=== PATIENT | female | born 1960 | race Caucasian/White ===

== ENCOUNTER 2020-08-10 08:25 | Outpatient (CLI) | payer BC, SELFPAY | END 2020-08-10 08:26 | disposition home or self-care (01) | PROVIDERS: PCP Family Medicine; Visit Provider Family Medicine | DX: R06.02 Shortness of breath (principal) | CPT/HCPCS: 94060; 94726; 94729 ==

== ENCOUNTER 2020-12-22 09:59 | Outpatient (CLI) | payer BC, SELFPAY ==
--- NOTE | ~2020-12-22 | XR_ITS ---
XR hand LT min 3V DATE: 12/22/2020 10:14 INDICATION: Chronic polyarthritis. Bilateral hand pain. TECHNIQUE: 3 views COMPARISON: None FINDINGS: There is a benign 4 mm cyst of the navicular bone. Osteoarthritic changes are noted primarily at the interphalangeal joints. No fracture, dislocation, periosteal reaction or bone destruction. No erosive change or chondrocalcin osis is detected. IMPRESSION: Osteoarthritic change primarily of the interphalangeal joints Reviewed, dictated and finalized at location B.
--- NOTE | ~2020-12-22 | XR_ITS ---
XR hand RT min 3V DATE: 12/22/2020 10:14 INDICATION: Chronic polyarthritis. Bilateral hand pain. TECHNIQUE: 3 views COMPARISON: None FINDINGS: There is osteoarthritis involving primarily the interphalangeal joints and first metacarpop halangeal joint. There is minimal osteoarthritic change at the third metacarpophalangeal joint. Mild osteoarthritis at the first carpometacarpal joint. No fracture, dislocation, periosteal reaction or bone destruction. No erosive change or chondrocalcin osis. IMPRESSION: Polyarticular osteoarthritis Reviewed, dictated and finalized at location B.
== END 2020-12-22 10:00 | disposition home or self-care (01) ==
LOC: CHSIMG 10:00
PROVIDERS: PCP Family Medicine; Visit Provider Family Medicine
DX: M13.0 Polyarthritis, unspecified (principal)
CPT/HCPCS: 73130

== ENCOUNTER 2020-12-30 13:23 | Outpatient (CLI) | payer BC, SELFPAY | END 2020-12-30 13:24 | disposition home or self-care (01) | LOC: CHSLAB 13:26 | PROVIDERS: PCP Family Medicine; Visit Provider Specialist | DX: L85.9 Epidermal thickening, unspecified (principal) | CPT/HCPCS: 88305 ==

== ENCOUNTER → 2021-12-22 09:34 | Outpatient (CLI) | payer BC, SELFPAY ==
--- NOTE | ~2021-12-22 | CT_ITS ---
EXAMINATION: CT diagnostic chest wo con DATE: 12/22/2021 09:56 INDICATION: Right breast cancer, pulmonary nodule TECHNIQUE: Computed tomography (CT) of the chest was performed without intravenous contrast. The dose -length product (DLP) was 645.63 mGy-cm. Automated exposure control and iterative reconstruction tech nique were employed. COMPARISON: None FINDINGS: There is a 3 mm nodule of the right lower lobe on image 74. The lungs are free of acute opa cities. There is no pleural effusion or pneumothorax. No pathologically enlarged thoracic lymph nodes are identified. The heart size is normal. There are changes of bilateral mastectomy with apparent tr am flap reconstruction. A 4.0 x 1.0 cm fluid collection is seen in the left axilla, likely postoperat meena seroma. There are changes of right axillary lymph node dissection. There is moderate thoracic spo ndylosis. The gallbladder is surgically absent. IMPRESSION: 1. Indeterminate 3 mm nodule of the right lower lobe. Comparison with any available prior imaging is recommended. Reviewed, dictated and finalized at location B. IMPRESSION: 1. Indeterminate 3 mm nodule of the right lower lobe. Comparison with any avail able prior imaging is recommended.
== END ==
PROVIDERS: PCP Family Medicine; Visit Provider Internal Medicine Medical Oncology
DX: C50.411 Malignant neoplasm of upper-outer quadrant of right female breast (principal); Z17.0 Estrogen receptor positive status [ER+]
CPT/HCPCS: 71250

== ENCOUNTER 2024-07-27 15:49 | Outpatient (CLI) | payer MEDICARE, SELFPAY ==
--- NOTE | ~2024-07-27 | US_ITS ---
Soft tissue left knee ULTRASOUND (Doppler ultrasound interrogation techniques used as needed for this exam.) Ordering provider: Tawanda Albright, History: . Acute knee pain . Comparison: None. FINDINGS/impression: Compressible fluid collection anterior to the patella suggestive of hematoma or seroma. Fluid in the suprapatellar bursa is also possible. Reviewed, dictated and finalized at location A.
== END 2024-07-27 15:50 | disposition home or self-care (01) ==
LOC: ANHIMG 15:55
PROVIDERS: PCP Family Medicine; Visit Provider Family Medicine
DX: M25.562 Pain in left knee (principal)
CPT/HCPCS: 76882

== ENCOUNTER → 2024-11-09 11:15 | Outpatient (REF) | payer MEDICARE, SELFPAY ==
--- OUTSIDE RECORDS SUMMARY | 2024-11-09 12:07 | XMS_ITS | Referral Summary ---
Author Organization [facility] Address [address] [place] [id number] Care Team Providers Care Dietary Supervisor Name Role Phone Tawanda Albright MD Primary Care Provider [phone] Jemima Crouch COMPUTER SYSTEM VALIDATION SPECIALIST Unavailable + [phone] Encounters Date Type Department Care Team Description 10/08/2024 8:00 AM LEAD MANUFACTURING ENGINEERING TECH Therapy [facility] [place] [address] [place], PT Acute pain of left knee (Primary Dx); Chronic pain of left knee; Suprapatellar bursitis of left knee 10/01/2024 7:45 AM LEAD MANUFACTURING ENGINEERING TECH Therapy [facility] [place] [address] [place], PT Acute pain of left knee (Primary Dx); Chronic pain of left knee; Suprapatellar bursitis of left knee 09/25/2024 7:00 AM LEAD MANUFACTURING ENGINEERING TECH Therapy [facility] [place] [address] [place], PT Acute pain of left knee (Primary Dx); Chronic pain of left knee; Suprapatellar bursitis of left knee 09/16/2024 5:00 PM LEAD MANUFACTURING ENGINEERING TECH Therapy [facility] [place] [address] [place], PT Acute pain of left knee (Primary Dx); Chronic pain of left knee; Suprapatellar bursitis of left knee 09/10/2024 7:00 AM LEAD MANUFACTURING ENGINEERING TECH Therapy [facility] [place] [address] [place], PT Acute pain of left knee (Primary Dx); Chronic pain of left knee; Suprapatellar bursitis of left knee; Primary osteoarthritis of left knee 08/31/2024 Telephone [facility] Primary Care at [address] [phone] Tawanda Albright MD Medical Question/Miscellaneou s 08/31/2024 Plan of Care Documentation [facility] Physical [facility] [place] [address] 08/31/2024 Orders Only [facility] Primary Care at [address] [phone] Tawanda Albright MD Basal cell carcinoma (BCC) of skin of other part of torso (Primary Dx) 08/31/2024 7:45 AM LEAD MANUFACTURING ENGINEERING TECH Therapy [facility] [place] [address] [place], PT Acute pain of left knee; Chronic pain of left knee; Suprapatellar bursitis of left knee; Primary osteoarthritis of left knee 08/26/2024 Telephone [facility] Primary Care at [address] [phone] Tawanda Albright MD Referral Request 08/17/2024 Telephone [facility] Primary Care at [address] [phone] Tawanda Albright MD Medication Request 08/17/2024 Telephone [facility] [address] [phone] Elizabeth Ramirez MD Scheduling Appointments 08/17/2024 Telephone [facility] Primary Care at [address] [phone] Tawanda Albright MD Medical Question/Miscelllatesha s 08/14/2024 Telephone [facility] Primary Care at [address] [phone] Tawanda Albright MD Medical Question/Mariellacelllatesha s 08/12/2024 Orders Only [facility] Medical [facility] Primary Care at [address] [phone] Tyron Munoz, Acute pain of left knee (Primary Dx); Chronic pain of left knee; Suprapatellar bursitis of left knee; Primary osteoarthritis of left knee 08/12/2024 10:30 AM LEAD MANUFACTURING ENGINEERING TECH Office Visit [facility] Medical [facility] Primary Care at [address] [phone] Tyron Munoz DO Primary osteoarthritis of left knee (Primary Dx); Acute pain of left knee; Chronic pain of left knee; Suprapatellar bursitis of left knee; Patellofemoral syndrome of left knee; Sprain of medial collateral ligament of left knee, initial encounter 08/10/2024 Telephone [facility] [address] [place] [phone] Maria Del Carmen Morfin RN from Last 3 Months Allergies Active Allergy Reactions Criticality Noted Date Comments Iodinated Contrast Media Anaphylaxis,Hives,Swelling High 08/04/2019 Latex Rash Medium 06/16/2019 Medications omeprazole (PriLOSEC) 40 mg capsuleIndicati ons:acid reflux Take 20 mg by mouth every morning Active fluticasone propionate (FLONASE) 50 mcg/actuation nasal spray Administer 1 spray into each nostril as needed for rhinitis Active folic acid/multivit-m in/lutein (CENTRUM SILVER ORAL)Indication s:supplement Take 1 tablet by mouth daily with breakfast Active acetaminophen (TYLENOL) 500 mg tablet Take 2 tablets (1,000 mg total) by mouth every 6 (six) hours as needed for pain Active xgmdi-6-zhp-epa -dpa-fish oil 1,050-1,200 mg capsule 1 capsule Active coenzyme Q10 10 mg capsule Take 1 capsule (10 mg total) by mouth daily Active telmisartan (MICARDIS) 40 mg tabletIndicatio ns:hypertension Take 0.5 tablets (20 mg total) by mouth daily 45 tablet 3 4 01/28/20 25 Active vit D3-vit U-tyjnatfvv-tly s [phone] asxt-xhy-lw-mg tablet Take by mouth Active exemestane (AROMASIN) 25 mg tabletIndicatio ns:advanced breast cancer progress post-antiestrog en tx Take 1 tablet (25 mg total) by mouth daily 90 tablet 2 4 Active HYDROcodone-maggy taminophen (NORCO) 5-325 mg per tabletIndicatio ns:Pain Take 1 tablet by mouth every 6 (six) hours as needed for pain 15 tablet 4 Active Additional Information Patient not taking.Reported on 08/12/2024 atorvastatin (LIPITOR) 40 mg tablet TAKE 1/2 TABLET(20 MG) BY MOUTH DAILY 45 tablet 1 4 Active celecoxib (CeleBREX) 200 mg capsuleIndicati ons:Acute pain of left knee Take 1 capsule (200 mg total) by mouth daily for 14 days 14 capsule 4 Active fluticasone-ume clidin-vilanter (Trelegy Ellipta) 100-62.5-25 mcg inhaler Inhale 1 puff daily 60 each 3 4 Active Active Problems Problem Noted Date Diagnosed Date Skin tag 07/24/2024 Osteopenia of left hip 07/03/2024 supervisor intermediates (current) use of aromatase inhibitors 07/03/2024 Administrative encounter 05/13/2024 Assessment & Plan (05/13/2024 10:19 AM CDT): A(n) yearly Annual [employer] Visit has been performed today. Char Barragan is not up to date on screening tests. She is in need of hep B and Cholesterol screening. She is not up to date on needed preventative vaccinations. We discussed healthy lifestyle habits, educational material has been given. Medications reviewed, changes documented as per the medical record and discussed with patient along with risks vs benefits. Return in 6 months Hypertension 11/13/2023 Assessment & Plan (11/13/2023 11:14 AM LEAD MANUFACTURING ENGINEERING TECH): Blood Pressure Follow-up: Lifestyle modifications education provided on sodium reduction, increase physical activity, reduce alcohol consumption, and weight reduction. H/O bilateral mastectomy 06/19/2023 COPD (chronic obstructive pulmonary disease) GERD (gastroesophageal reflux disease) 3 Initial Medicare annual wellness visit Assessment & Plan (05/15/2023 10:04 AM CDT): A(n) initial Medicare Annual Wellness Visit has been performed today. Char Barragan is not up to date on screening tests. She is in need of DEXA, Colon cancer screening, and Cholesterol screening. She is not up to date on needed preventative vaccinations; She is in need of Tdap/Td and Zoster. We discussed healthy lifestyle habits, educational material has been given. Medications reviewed, changes documented as per the medical record and discussed with patient along with risks vs benefits. Return in 6 months Assessment & Plan (07/26/2022 8:27 PM CDT): A(n) initial well visit to establish care has been performed today. Char Barragan is not up to date on screening tests. She is in need of Breast cancer screening, hepatitis c screening, Colon cancer screening, Cholesterol screening and Cervical cancer screening. She is not up to date on needed preventative vaccinations; She is in need of Tdap/Td, Influenza, Pneumonia (Prevnar-13 or Pneumovax-23) and Covid- 19 (booster). Class 3 severe obesity due t o excess calories without serious comorbidity with body mass index (BMI) of 45.0 to 49.9 in adult 07/23/2022 Assessment & Plan (11/13/2023 12:01 PM LEAD MANUFACTURING ENGINEERING TECH): Stable BMI Follow-up includes: nutrition counseling, exercise counseling, and education provided. Assessment & Plan (07/26/2022 8:25 PM CDT): BMI Follow-up includes: nutrition counseling, exercise counseling and education provided. Body mass index (BMI) 45.0-49.9, adult Assessment & Plan (08/20/2022 10:23 PM LEAD MANUFACTURING ENGINEERING TECH): BMI Follow-up includes: nutrition counseling, exercise counseling and education provided. S/P breast reconstruction, bilateral 05/11/2020 Overview (05/11/2020): Added automatically from request for surgery [id number] Malignant neoplasm of female breast 07/23/2019 Overview (07/23/2019): Added automatically from request for surgery [id number] Malignant neoplasm of right breast in female, estrogen receptor positive 06/26/2019 Problem 12/10/2013 Immunizations Name Administration Dates Next Due Influenza, Quadrivalent, Nita l Culture-based MDCK, Preservative Free, Antibiotic Free, Intramuscular 06/27/2023 Influenza, Quadrivalent, Spl it, Preservative Free, Intramuscular 07/23/2022,07/05/2020,08/22/2019 Influenza, Unspecified 05/15/2023(Deferr ed: Patient Refused),09/30/2022(Deferred: Patient Refused),09/30/2021(Deferred: Patient Refused) Moderna SARS-CoV-2 Monovalen t Vaccination (12+ YRS) 10/04/2021,02/28/2021,01/31/2021 Pneumococcal Conjugate Pcv20 07/23/2022 Pneumococcal Polysaccharide PPV23 07/05/2020 ZOSTER Recombinant 11/22/2020,07/05/2020 Social History Tobacco Use Types Packs/Day Years Used Date Smoking Tobacco: Former Cigarettes 0.5 22 1 975 - 1992 Cigars 2004 - 2018 Passive Smoke Exposure: Past Smokeless Tobacco: Never Tobacco Cessation:Counseling Given: Not Answered Alcohol Use Standard Drinks/Week Comments Not Currently 0 (1 standard drink = 0.6 oz pur e alcohol) AUDIT-C Answer Date Recorded Q1: How often do you have a drink containing alc ohol? Monthly or less 08/12/2024 Q2: How many drinks containi ng alcohol do you have on a typical day when you are drinking? 1 or 2 08/12/2024 Q3: How often do you have si x or more drinks on one occasion? Never 08/12/2024 PHQ-2 Answer Date Recorded PHQ-2 Total Score (If total score is 3 or more points, staff should administer the PHQ-9) 0 05/13/2024 Personal Safety Answer Date Recorded Have you ever been in or are you currently in a harmful physical or emotional relationship or is someone making you feel afraid or unsafe? Denies 07/25/2024 Comments No Sex and Gender Information Value Date Recorded Sex Assigned at Not on file Legal Sex Female 9:05 AM LEAD MANUFACTURING ENGINEERING TECH Gender Identity Not on file Sexual Orientation Not on file Last Filed Vital Signs Vital Sign Reading Time Taken Comments Blood Pressure 142/82 08/12/2024 10:41 AM LEAD MANUFACTURING ENGINEERING TECH Pulse 89 08/12/2024 10:41 AM LEAD MANUFACTURING ENGINEERING TECH Temperature 36 C (96.8 F) 07/27/2024 10:35 AM CDT Respiratory Rate 18 07/27/2024 10:35 AM CDT Oxygen Saturation 96% 07/27/2024 10:35 AM CDT Inhaled Oxygen Concentration - - Weight 136.1 kg (300 lb) 08/12/2024 10:41 AM LEAD MANUFACTURING ENGINEERING TECH Height 167.6 cm (5' 6 ) 08/12/2024 10:41 AM LEAD MANUFACTURING ENGINEERING TECH Body Mass Index 48.42 08/12/2024 10:41 AM LEAD MANUFACTURING ENGINEERING TECH Plan of Treatment Not on file Procedures Procedure Name Priority Date/Time Associated Diagnosis Comments DEXA AXIAL SKELETON BONE DENSITY 1 OR MORE SITES Schedule Routine, Read Routine (OP Routine) 05/22/2023 12:41 PM CDT Asymptomatic menopausal state Screening for osteoporosis HEPATITIS C ANTIBODY Routine 07/27/2022 10:21 AM CDT Encounter for hepatitis C screening test for low risk patient COLONOSCOPY Routine 09/24/2018 from Last 3 Months or Most Recently Relevant to Health Maintenance Results * Dexa Axial Skeleton Bone Density 1 or 2 Site (05/22/2023 12:41 PM CDT) Anatomical Region Laterality Modality Body N/A Other 05/22/2023 7:51 PM CDT Narrative 05/22/2023 7:52 PM CDT EXAM DESCRIPTION: DEXA AXIAL SKELETON BONE DENSITY 1 OR MORE SITES REASON FOR STUDY: 63 y/o year old F with given history of: screen osteoporosis, Osteoporosis screening screening Hogshead Wrecker/Model: Gig[employer] SL (S/N [id number]) CLINICAL INFORMATION: Current height: 65 inches Maximum height: 66 inches Weight: 298 pounds Risk factors: Postmenopausal, cancer COMPARISON: None available FINDINGS: AP LUMBAR SPINE L1-L4: Total BMD is 0.939 g/cm2 T-score is -1.0 LEFT HIP: Total BMD is 0.847 g/cm2 T-score is -0.8 Femoral neck BMD is 0.579 g/cm2 T-score is -2.4 FRAX: 10 year risk for a major osteoporotic fracture is 10 %, 10 year risk for a hip fracture is 1.7 % IMPRESSION: Low Bone Mass. REFERENCE: Bone mineral density: Normal (T-score above or = -1.0) Low bone mass (T-score between -1.0 and -2.5) replaces the previously used term osteopenia Osteoporosis (T-score = or below -2.5) Medical evaluation for secondary causes of low bone mineral density may be appropriate. FRAX is a World Health Organization validated fracture risk assessment tool that calculates a person's 10 year probability of a major osteoporosis related fracture and hip fracture. According to the National Osteoporosis Foundation guidelines, postmenopausal women and men age 50 or older with low bone mass and a 10 year probability of a major osteoporosis related fracture = or greater than 20% or a 10 year probability of a hip fracture = or greater than 3% should be considered for treatment. For further information, including treatment recommendations, please refer to the 2019 ISCD Official Positions (http://www.iscd.org) and the NOF's Clinician's Guide to Prevention and Treatment of Osteoporosis (http://www.nof.org/professionals/clinical-guidelines) THIS IS AN ELECTRONICALLY VERIFIED FINAL REPORT 05/22/2023 7:52 PM - Electronically signed by Tyron Almaguer M.D. MF: HILLARY Report ID: [id number] Reading Location: [place] [address] Procedure Note Tyron Almaguer MD - 05/22/2023 EXAM DESCRIPTION: DEXA AXIAL SKELETON BONE DENSITY 1 OR MORE SITES REASON FOR STUDY: 63 y/o year old F with given history of: screen osteoporosis, Osteoporosis screening screening Hogshead Wrecker/Model: [employer] SL (S/N [id number]) CLINICAL INFORMATION: Current height: 65 inches Maximum height: 66 inches Weight: 298 pounds Risk factors: Postmenopausal, cancer COMPARISON: None available FINDINGS: AP LUMBAR SPINE L1-L4: Total BMD is 0.939 g/cm2 T-score is -1.0 LEFT HIP: Total BMD is 0.847 g/cm2 T-score is -0.8 Femoral neck BMD is 0.579 g/cm2 T-score is -2.4 FRAX: 10 year risk for a major osteoporotic fracture is 10 %, 10 year risk for ahip fracture is 1.7 % IMPRESSION: Low Bone Mass. REFERENCE: Bone mineral density: Normal (T-score above or = -1.0) Low bone mass (T-score between -1.0 and -2.5) replaces thepreviously used term osteopenia Osteoporosis (T-score = or below -2.5) Medical evaluation for secondary causes of low bone mineral density may be appropriate. FRAX is a World Health Organization validated fracture risk assessmenttool that calculates a person's 10 year probability of a major osteoporosisrelated fracture and hip fracture. According to the National OsteoporosisFoundation guidelines, postmenopausal women and men age 50 or older with low bonemass and a 10 year probability of a major osteoporosis related fracture = or greater than 20% or a 10 year probability of a hip fracture = or greaterthan 3% should be considered for treatment. For further information, including treatment recommendations, please referto the 2019 ISCD Official Positions (http://www.iscd.org) and the NOF's Clinician's Guide to Prevention and Treatment of Osteoporosis (http://www.nof.org/professionals/clinical-guidelines) THIS IS AN ELECTRONICALLY VERIFIED FINAL REPORT 05/22/2023 7:52 PM - Electronically signed by Tyron Almaguer M.D. MF: HILLARY Report ID: [id number] Reading Location: [place] [address] us Tawanda Albright MD IMG DXA PROCEDURES Final Re sult * Hepatitis C antibody (07/27/2022 10:21 AM CDT) Hep C Ab Nonreactive Nonreactive TRUDY BELTRÁN Comment: Interpretive Data Nonreactive: Antibodies to HCV not detected. Does NOT exclude the possibility of recent exposure to HCV. Equivocal: Equivocal for HCV antibodies. Supplemental molecular testing will be automatically performed to determine infection status in accordance with current CDC screening recommendations. Reactive: Positive for HCV antibodies. This may represent current or past HCV infection. Supplemental molecular testing will be automatically performed to determine current infection status in accordance with current CDC screening recommendations. Interpretive data was last revised on 2019. Blood 07/27/2022 10:2 1 AM CDT 07/27/2022 2:13 PM CDT Tawanda Albright MD LAB MICROBIOLOGY - GENERAL ORDERABLES Final Result Performing Organization Address City/State/[facility] Co mo Phone Number TRUDY [phone] [address] Department [place] [address] * Colonoscopy (09/24/2018) Anatomical Region Laterality Modality Other Historical Provider ENDOSCOPY PROCEDURES Augustina l Result from Last 3 Months or Most Recently Relevant to Health Maintenance Insurance [employer] MEDIC[employer] PPO [employer] MED[employer] PPO Advance Directives For more information, please contact: [phone] Documents on File Type Date Recorded Patient Supervisor Prepress Expl anation ADVANCE DIRECTIVE 08/25/2019 11:14 AM LESLY ER OF [employer] MACHINE FIXER-FINANCIAL/MEDIC AL ADVANCE DIRECTIVE 08/20/2019 8:19 AM PEGGY R OF [employer]LL[employer] MACHINE FIXER-CODICIL * Full Code (Latest Code Status on File) Date Activated Date Inactivated Comments 08/20/2019 4:00 PM 08/22/2019 6:19 PM Care Teams Dietary Supervisor Relationship Specialty Start Date End Date Tawanda Albright MD [address] [address] PCP - General Family Medicine 07/19/22 Jemima Crouch NP [facility] [address] Nurse Practitioner Medical Oncology 07/12/23
--- OUTSIDE RECORDS SUMMARY | 2024-11-09 12:07 | XMS_ITS | Clinical Summary ---
Author Organization [facility] Address [address] [place] [address] Care Team Providers Care Line Department Supervisor Name Role Phone Tawanda Albright MD Primary Care Provider Jemima Crouch HONEYCOMB BLANKET MAKER Unavailable [phone] Allergies Active Allergy Reactions Criticality Noted Date [...] (six) hours as needed for pain Active crstj-8-rai-epa -dpa-fish oil 1,050-1,200 mg capsule 1 capsule Active coenzyme Q10 10 mg capsule Take 1 capsule (10 mg total) by mouth daily Active telmisartan (MICARDIS) 40 mg tabletIndicatio ns:hypertension Take 0.5 tablets (20 mg total) by mouth daily 45 tablet 3 4 01/28/20 25 Active vit D3-vit S-jfixcxlfm-nqq s [id number] tzwx-rix-if-mg tablet Take by mouth Active exemestane (AROMASIN) [...] tag 07/24/2024 Osteopenia of left hip 07/03/2024 [facility] (current) use of aromatase inhibitors 07/03/2024 Administrative [...] 11/13/2023 Assessment & Plan (11/13/2023 11:14 AM CIVIL STRUCTURAL ENGINEER): Blood Pressure Follow-up: Lifestyle modifications education provided on sodium reduction, increase physical activity, reduce alcohol consumption, and weight reduction. H/O bilateral mastectomy 06/19/2023 COPD (chronic obstructive pulmonary disease) GERD (gastroesophageal reflux disease) 3 Initial Medicare annual wellness visit 2 Assessment & Plan (05/15/2023 10:04 AM CDT): [...] 07/23/2022 Assessment & Plan (11/13/2023 12:01 PM CIVIL STRUCTURAL ENGINEER): Stable BMI Follow-up includes: nutrition counseling, exercise counseling, and education provided. Assessment & Plan (07/26/2022 8:25 PM CDT): BMI Follow-up includes: nutrition counseling, exercise counseling and education provided. Body mass index (BMI) 45.0-49.9, adult Assessment & Plan (08/20/2022 10:23 PM CIVIL STRUCTURAL ENGINEER): BMI Follow-up includes: nutrition counseling, exercise counseling and education provided. S/P breast reconstruction, bilateral 05/11/2020 Overview (05/11/2020): Added automatically from request for surgery [id number] Malignant neoplasm of female breast 07/23/2019 Overview (07/23/2019): Added automatically from request for surgery [id number] Malignant neoplasm of right breast in female, estrogen receptor positive 06/26/2019 Problem 12/10/2013 Encounters Date Type Department Care Team Description 10/08/2024 8:00 AM CIVIL STRUCTURAL ENGINEER Therapy [facility] [place] [address] [place] Acute pain of left knee (Primary Dx); Chronic pain of left knee; Suprapatellar bursitis of left knee 10/01/2024 7:45 AM CIVIL STRUCTURAL ENGINEER Therapy [facility] [place] [address] [place] Acute pain of left knee (Primary Dx); Chronic pain of left knee; Suprapatellar bursitis of left knee 09/25/2024 7:00 AM CIVIL STRUCTURAL ENGINEER Therapy [facility] [place] [address] [place], [place] Acute pain of left knee (Primary Dx); Chronic pain of left knee; Suprapatellar bursitis of left knee 09/16/2024 5:00 PM CIVIL STRUCTURAL ENGINEER Therapy [facility] [place] [address] [address] [place], [place] Acute pain of left knee (Primary Dx); Chronic pain of left knee; Suprapatellar bursitis of left knee 09/10/2024 7:00 AM CIVIL STRUCTURAL ENGINEER Therapy [facility] [place] [address] [place], [place] Acute pain of left knee (Primary Dx); Chronic pain of left knee; Suprapatellar bursitis of left knee; Primary osteoarthritis of left knee 08/31/2024 7:45 AM CIVIL STRUCTURAL ENGINEER Therapy [facility] [place] [address] [place], [place] Acute pain of left knee; Chronic pain of left knee; Suprapatellar bursitis of left knee; Primary osteoarthritis of left knee 08/31/2024 Telephone [facility] Primary Care at [address] [address] Tawanda Albright MD Medical Question/Miscellaneou s 08/31/2024 Plan of Care Documentation [facility] Physical [facility] - [place] [address] [place] [address] 08/31/2024 Orders Only [facility] Primary Care at [address] [address] Tawanda Albrgiht MD Basal cell carcinoma (BCC) of skin of other part of torso (Primary Dx) 08/26/2024 Telephone [facility] Primary Care at [address] [address] Tawanda Albright MD Referral Request 08/17/2024 Telephone [facility] Primary Care at [address] [address] Tawanda Albright MD Medication Request 08/17/2024 Telephone [facility] Surgery [facility] [address] Elizabeth Ramirez MD Scheduling Appointments 08/17/2024 Telephone [facility] Primary Care at [address] [address] Tawanda Albright MD Medical Question/Angelica s 08/14/2024 Telephone [facility] Primary Care at [address] [address] Tawanda Albright MD Medical Question/Mariellacellaneou s 08/12/2024 10:30 AM CIVIL STRUCTURAL ENGINEER Office Visit [facility] Sports Medicine and Primary Care at [address] [place] [address] Tyron Munoz DO Primary osteoarthritis of left knee (Primary Dx); Acute pain of left knee; Chronic pain of left knee; Suprapatellar bursitis of left knee; Patellofemoral syndrome of left knee; Sprain of medial collateral ligament of left knee, initial encounter 08/12/2024 Orders Only [facility] Sports Medicine and Primary Care at [address] [place] [address] Tyron Munoz DO Acute pain of left knee (Primary Dx); Chronic pain of left knee; Suprapatellar bursitis of left knee; Primary osteoarthritis of left knee 08/10/[address] [facility] Oncology [facility] [address] [place] [address] Maria Del Carmen Morfin RN from Last 3 Months Immunizations Name Administration Dates Next Due Influenza, Quadrivalent, Nita l Culture-based MDCK, Preservative Free, Antibiotic Free, Intramuscular 06/27/2023 Influenza, Quadrivalent, Spl it, Preservative Free, Intramuscular 07/23/2022,07/05/2020,08/22/2019 Influenza, Unspecified 05/15/2023(Deferr ed: Patient Refused),09/30/2022(Deferred: Patient Refused),09/30/2021(Deferred: Patient Refused) Moderna SARS-CoV-2 Monovalen t Vaccination (12+ YRS) 10/04/2021,02/28/2021,01/31/2021 Pneumococcal Conjugate Pcv20 07/23/2022 Pneumococcal Polysaccharide PPV23 07/05/2020 ZOSTER Recombinant 11/22/2020,07/05/2020 Surgical History Surgery Date Site/Laterality Comments HYSTERECTOMY CHOLECYSTECTOMY COLONOSCOPY BREAST BIOPSY 09/30/2018 - 09/29/2019 Right IDC BREAST LUMPECTOMY 09/30/1995 - 09/29/1996 Right and ALND BREAST LUMPECTOMY 09/30/2001 - 09/29/2002 Left and ALND TOE SURGERY REPAIR KNEE LIGAMENT Right CARTILAGE SURGERY Left knee BREAST BIOPSY 06/19/2019 Right Medical History Medical History Date Comments Breast cancer (HCC) Hypertension 11/13/2023 Osteoporosis Mononucleosis Sleep apnea GERD (gastroesophageal reflux disease) Arthritis History of chemotherapy 1995 and 2001 History of radiation therapy 199 6 and 2001 Delayed emergence from gener al anesthesia reports deep sleeper but den ies prolonged intubation/reintubation/ICU stay Breast cancer (HCC) last chemo a nd radiation 2002 COPD (chronic obstructive pu lmonary disease) (HCC) PCOS (polycystic ovarian syndrome) Endometriosis Family History Medical History Relation Name Comments Heart disease Father Skin cancer Father Stroke Father mid 40s Sleep apnea Father's Brother Breast cancer Father's Sister Skin cancer Maternal Grandfather Lung cancer Mother Breast cancer Paternal Grandmother Cervical cancer Paternal Grandmother Cervical cancer Sister Heart disease Sister Ovarian cancer Sister Anesthesia problems Neg Hx Relation Name Status Comments Father Father's Brother Father's Sister Maternal Grandfather Mother Paternal Grandmother Sister Alive Social History Tobacco Use Types Packs/Day Years Used Date Smoking Tobacco: Former Cigarettes 0.5 22 1 975 - 1991 Cigars 2004 - 2018 Passive Smoke Exposure: [...] on file Legal Sex Female 9:05 AM CIVIL STRUCTURAL ENGINEER Gender Identity Not on file Sexual Orientation Not on file Obstetrics History Last Filed Vital Signs Vital Sign Reading Time Taken Comments Blood Pressure 142/82 08/12/2024 10:41 AM CIVIL STRUCTURAL ENGINEER Pulse 89 08/12/2024 10:41 AM CIVIL STRUCTURAL ENGINEER Temperature 36 C (96.8 F) 07/27/2024 10:35 AM CDT Respiratory Rate 18 07/27/2024 10:35 AM CDT Oxygen Saturation 96% 07/27/2024 10:35 AM CDT Inhaled Oxygen Concentration - - Weight 136.1 kg (300 lb) 08/12/2024 10:41 AM CIVIL STRUCTURAL ENGINEER Height 167.6 cm (5' 6 ) 08/12/2024 10:41 AM CIVIL STRUCTURAL ENGINEER Body Mass Index 48.42 08/12/2024 10:41 AM CIVIL STRUCTURAL ENGINEER Plan of Treatment Health Maintenance Due Date Last Done Comments DTaP/Tdap/Td Vaccine (1 - Tdap) 1969 Hepatitis B Screening 1976 Covid-19 Vaccine (4 - 2023-2 5 season) 2024 10/04/2021, 02/28/2021, 01/31/2021 Influenza Vaccine (#1) 2024 , 06/27/2023, 07/23/2022, Additional history exists Depression Screening 05/13/2025 05/13/2024, 11/13/2023, 05/15/2023, Additional history exists Fall Risk Assessment 05/13/2025 05/13/2024, 05/15/2023, 11/20/2022, Additional history exists Well Visit 65+ 05/13/2025 05/13/2024, 04/30, 07/23/2022 Osteoporosis Screening-Bone Density Scan 05/22/2025 05/22/2023 Colon Cancer Screening-Colonoscopy 09/24/2028 09/24/2018 Colon Cancer Screening-CT Colonography Discontinued 09/24/2018 Colon Cancer Screening-DNA Stool Discontinued 09/24/20 18 Colon Cancer Screening-FIT Discontinued 09/24/2018 Colon Cancer Screening-Sigmoidoscopy Discontinued 09/24/2018 Breast Cancer Screening-Mammogram Discontinued 019 Zoster Vaccine Completed 11/22/2020, 07/05/2020 Pneumococcal vaccine 65+ Completed 07/23/2022, 02/2020 Hepatitis C Screening Completed 07/27/2022 Procedures Procedure Name Priority Date/Time Associated Diagnosis [...] history of: screen osteoporosis, Osteoporosis screening screening Microbiology Coordinator/Model: [employer] (S/N [id number]) CLINICAL INFORMATION: Current height: 65 inches Maximum [...] Tyron Almaguer M.D. MF: HILLARY Report ID: [id number] Reading Location: [address] Note Tyron Almaguer MD - 05/22/2023 EXAM DESCRIPTION: DEXA AXIAL SKELETON BONE DENSITY 1 OR MORE SITES REASON FOR STUDY: 63 y/o year old F with given history of: screen osteoporosis, Osteoporosis screening screening Microbiology Coordinator/Model: [employer] (S/N [id number]) CLINICAL INFORMATION: Current height: 65 inches Maximum [...] Tyron Almaguer M.D. MF: HILLARY Report ID: [id number] Reading Location: [place] [address] Tawanda Albright MD IMG DXA PROCEDURES Final [...] GENERAL ORDERABLES Final Result Performing Organization Address City/State/[facility] Co md Phone Number [address] [phone] [address] Department [place] [address] * Colonoscopy (09/24/2018) Anatomical Region Laterality Modality Other Elena Provider ENDOSCOPY PROCEDURES Augustina l Result from Last 3 Months or Most Recently Relevant to Health Maintenance Insurance [employer] CHOICE MEDICARE PPO HU[employer] CHOICE MEDICARE PPO HU[employer] CHOICE MEDICARE PPO Advance Directives For more information, please contact: [phone] Documents on File Type Date Recorded Patient Supervisor Cell Maintenance Expl anation ADVANCE DIRECTIVE 08/25/2019 11:14 AM LESLY ER OF WEB UI DESIGNER-FINANCIAL/MEDIC AL ADVANCE DIRECTIVE 08/20/2019 8:19 AM PEGGY R OF WEB UI DESIGNER-CODICIL * Full Code (Latest Code Status on File) Date Activated Date Inactivated Comments 08/20/2019 4:00 PM 08/22/2019 6:19 PM Care Teams Line Department Supervisor Relationship Specialty Start Date End Date Tawanda Albright MD [address] [facility] [address] [place] [address] PCP - General Family Medicine 07/19/22 Jemima Crouch NP [facility]8 [facility] [address] [address] Nurse Practitioner Medical Oncology 07/12/23
--- OUTSIDE RECORDS SUMMARY | 2024-11-09 12:07 | XMS_ITS | Encounter Summary ---
Author Organization [facility] Address [address] [place] [address] Care Team Providers Care Crystalizer Tender Name Role Phone Jhon Lopez MD Primary Care Provider [phone] Reason for Visit * Reason Onset Date Comments Preprocedure Call 06/16/2019 Encounter Details Date Type Department Care Team (Late st Contact Info) Description 06/16/2019 Pre-Procedure Call [facility] Diagnostic Imaging [address] [place] [address] Jhon Lopez MD [address] [place] [address] Preprocedure Call Social History Tobacco Use Types Packs/Day Years Used Date Smoking Tobacco: Light Smoker Cigars Smokeless Tobacco: Never Comments:smokes cigar once m onthly Alcohol Use Standard Drinks/Week Comments Yes 0 (1 standard drink = 0.6 oz pur e alcohol) social Comments No Sex and Gender Information Value Date Recorded Sex Assigned at Not on file Legal Sex Female 7:33 PM CDT Gender Identity Not on file Sexual Orientation Not on file documented as of this encounter Last Filed Vital Signs Vital Sign Reading Time Taken Comments Blood Pressure - - Pulse - - Temperature - - Respiratory Rate - - Oxygen Saturation - - Inhaled Oxygen Concentration - - Weight 132.5 kg (292 lb) 06/16/2019 12:00 AM CDT Height 165.1 cm (5' 5 ) 06/16/2019 12:00 AM CDT Body Mass Index 48.59 06/16/2019 12:00 AM CDT documented in this encounter Plan of Treatment Not on file documented as of this encounter Visit Diagnoses Not on filedocumented in this encounter Care Teams Crystalizer Tender Relationship Specialty Start Date End Date Jhon Lopez MD [address] [place] [address] PCP - General FAMILY PRACTICE 06/04/19 documented as of this encounter
--- OUTSIDE RECORDS SUMMARY | 2024-11-09 12:07 | XMS_ITS | Clinical Summary ---
Author Organization [facility] Address [address] [place] [address] Care Team Providers Care Hatchery Man Name Role Phone Jhon Lopez MD Primary Care Provider [phone] Allergies Active Allergy Reactions Criticality Noted Date Comments Iodine Throat swelling High 06/16/2019 Hives and throat swelling Latex Rash Low 06/16/2019 Medications hydrochlorothiaz ibeth 12.5 MG tablet Take 12.5 mg by mouth 2 (two) times a day. 3 03/27/2019 Active losartan 50 MG tablet Take 50 mg by mouth 2 (two) times daily. 3 03/27/2019 Active Social History Tobacco Use Types Packs/Day Years [...] Sign Reading Time Taken Comments Blood Pressure 120/62 06/19/2019 1:28 PM CDT Pulse 78 06/19/2019 1:28 PM CDT Temperature - - Respiratory Rate 18 06/19/2019 1:28 PM CDT Oxygen Saturation 96% 06/19/2019 1:28 PM CDT Inhaled Oxygen Concentration - - Weight 132.5 kg (292 lb) 06/16/2019 12:00 AM CDT Height 165.1 cm (5' 5 ) 06/16/2019 12:00 AM CDT Body Mass Index 48.59 06/16/2019 12:00 AM CDT Plan of Treatment Health Maintenance Due Date Last Done Comments Colorectal Cancer Screening Colonoscopy (10 Years) 1958 Hepatitis C 1976 DTaP, Tdap and Td Vaccines ( 1 - Tdap) 1977 Mammogram Screening 06/19/2021 06/19/2019, 06/12/2019, 06/04/2019 Pneumococcal Vaccine: 65+ Years (2 of 2 - PCV) 07/05/2021 07/05/2020 Dexa Scan (General) 2023 COVID-19 Vaccine (3 - 2023-2 5 season) 2024 02/28/2021, 01/31/2021 Influenza Adult (#1) 2024 07/05/2020, 08/22/2019 RSV Immunization or 60+ Years (1 - 1-dose 75+ series) 2033 Zoster Vaccines Completed 11/22/2020, 07/05/2020 Meningococcal B Vaccine Aged Out No l onger eligible based on patient's age to complete this topic Meningococcal Vaccine Aged Out No coleen gem eligible based on patient's age to complete this topic RSV Immunizations Under 20 Months Aged Out No longer eligible b ased on patient's age to complete this topic Procedures Procedure Name Priority Date/Time Associated Diagnosis Comments MG DIAGNOSTIC RT DIGI Routine 06/19/2019 2:28 PM CDT Status post biopsy from Last 3 Months or Most Recently Relevant to Health Maintenance Results * MG DIAGNOSTIC RT DIGI (06/19/2019 2:28 PM CDT) Anatomical Region Laterality Modality Breast Right Ultrasound, Radi ographic Imaging 06/19/2019 4:11 PM CDT Narrative 06/19/2019 4:13 PM CDT RIGHT BREAST DIAGNOSTIC MAMMOGRAPHY WITH COMPUTER AIDED DETECTION: MG DIAGNOSTIC RT DIGI COMPARISON STUDIES: 06/04/2019. CLINICAL HISTORY: Other specified postprocedural states POST BIOPSY FINDINGS: Right CC and MLO demonstrate the postbiopsy clip embedded within the targeted nodule within the upper outer quadrant in good position. CONCLUSION: Post biopsy clip in good position, awaiting results from pathology. MQSA BI-RADS Categories: Category 0 - needs additional imaging evaluation. Category 1 - negative. Category 2 - benign findings. Category 3 - probably benign findings, but short interval follow-up is recommended. Category 4 - suspicious abnormality and biopsy should be considered though the lesion may well be benign. Category 5 - highly suggestive of malignancy and appropriate action should be taken. A) A negative report should not delay a biopsy if a dominant or clinically suspicious mass is present. B) Adenosis and dense breasts may obscure an underlying neoplasm. C) Study interpreted with computer aided detection. Voice recognition software utilized. Interpreted By: Troy Berumen, 06/19/2019 4:11 PM Jhon Lopez MD MAMMO Final Result from Last 3 Months or Most Recently Relevant to Health Maintenance Insurance Care Teams Hatchery Man Relationship Specialty Start Date End Date Jhon Lopez MD [address] [place] [address] PCP - General FAMILY PRACTICE 06/04/19
--- OUTSIDE RECORDS SUMMARY | 2024-11-09 12:07 | XMS_ITS ---
Author Organization [facility] Address [address] [place] [address] Care Team Providers Care Telex Operator Name Role Phone Tawanda Albright MD Primary Care Provider Jemima Crouch MARBLE RUBBER Unavailable [phone] Active Problems Problem Noted Date Diagnosed Date Skin tag 07/24/2024 Osteopenia of left hip 07/03/2024 [facility] (current) use of aromatase inhibitors 07/03/2024 Administrative [...] 11/13/2023 Assessment & Plan (11/13/2023 11:14 AM RESIDENTIAL FEE APPRAISER): Blood Pressure Follow-up: Lifestyle modifications education provided on sodium reduction, increase physical activity, reduce alcohol consumption, and weight reduction. H/O bilateral mastectomy 06/19/2023 COPD (chronic obstructive pulmonary disease) GERD (gastroesophageal reflux disease) Initial Medicare annual wellness visit Assessment & [...] 07/23/2022 Assessment & Plan (11/13/2023 12:01 PM RESIDENTIAL FEE APPRAISER): Stable BMI Follow-up includes: nutrition counseling, exercise counseling, and education provided. Assessment & Plan (07/26/2022 8:25 PM CDT): BMI Follow-up includes: nutrition counseling, exercise counseling and education provided. Body mass index (BMI) 45.0-49.9, adult 2 Assessment & Plan (08/20/2022 10:23 PM RESIDENTIAL FEE APPRAISER): BMI Follow-up includes: nutrition counseling, exercise counseling and education provided. S/P breast reconstruction, bilateral 05/11/2020 Overview (05/11/2020): Added automatically from request for surgery [id number] Malignant neoplasm of female breast 07/23/2019 Overview (07/23/2019): Added automatically from request for surgery [id number] Malignant neoplasm of right breast in female, estrogen receptor positive 06/26/2019 Problem 12/10/2013 Current Oncology Plans Zoledronic Acid (Reclast) Infusion* Plan Start Date:07/10/2024 Plan Provider:Jemima Crouch NP Linked Problems Malignant neoplasm of upper- outer quadrant of right breast in female, estrogen receptor positive (HCC)terminal computer operator (current) use of aromatase inhibitorsOsteopenia of left hip Treatment Medications No medications scheduled. Past Plans No past plan information found. Radiation Treatments * No radiation treatments are documented for this patient in [facility]. Treatments may have been administered in another system.
== END ==
LOC: ANHLAB 11:15
PROVIDERS: PCP Family Medicine; Visit Provider Plastic Surgery
DX: C44.519 Basal cell carcinoma of skin of other part of trunk (principal)
CPT/HCPCS: 88305